=== PATIENT | female | born 1955 | race Caucasian/White ===

== ENCOUNTER → 2016-11-13 | Outpatient (CLI) | payer MEDICARE, MEDICAID ==
--- NOTE | 2016-11-13 14:10 | WOMENS IMAGING REPORT ---
EXAM DESCRIPTION: BONE DENSITY HIP/SPINE COMPLETED DATE/TIME: 11/13/2016 2:02 pm REASON FOR STUDY: M89.9 M89.9 DISORDER OF BONE, UNSPECIFIED COMPARISON: None. TECHNIQUE: Dual-Energy X-ray Absorptiometry (DEXA) of the AP Spine and Hip. LIMITATIONS: None. FINDINGS: LUMBAR SPINE: The bone mineral density (BMD) measured from L1-L4 in the AP projection correlates with a T-score of -1.0, which is osteopenia as defined by the World Health Organization. HIP: The bone mineral density (BMD) measured in the left hip correlates with a T-score of -0.7, which is n ormal as defined by the World Health Organization. IMPRESSION: 1. LUMBAR SPINE: Borderline osteopenia 2. HIP: Normal COMMENT: The World Health Organization defines low BMD as follows: T-score: Normal: Greater than -1.0 Osteopenia: Between -1.0 and -2.5 Osteoporosis: Less than -2.5 without fractures Established osteoporosis: Less than -2.5 with fractures In general, you may wish to consider: Diagnosis Treatment Follow-up DEXA Normal BMD Prevention 2-3 years Osteopenia Prevention/Therapy 1-2 years Osteoporosis Therapy Yearly TECHNICAL DOCUMENTATION: JOB ID: [id number]- All Rights Reserved
== END ==
LOC: WI 12:37
PROVIDERS: ATTEND Internal Medicine
DX: M85.88 Other specified disorders of bone density and structure, other site (principal)
CPT/HCPCS: 77080

== ENCOUNTER 2017-05-11 09:37 | Emergency (ER) | payer MEDICARE, MEDICAID ==
--- NOTE | 2017-05-11 10:45 | ER Document Report ---
ED Medical Screen (RME) - General TRAVEL OUTSIDE OF THE [place] IN LAST 30 DAYS: No - HPI Patient complains to provider of: Shortness of Breath Onset: Other - 10 days ago Onset/Duration: Worse Associated Symptoms: Other - see notes above - Related Data Smoking: Cigarettes - 1 ppd <KEI ARAMBULA - Last Filed: 05/11/17 10:59> <DUANE GARCIA - Last Filed: 05/11/17 21:03> - General Chief Complaint: Shortness Of Breath Stated Complaint: SHORTNESS OF BREATH Time Seen by Provider: 05/11/17 10:27 Notes: 61 year old female with history of smoking (1 ppd) and family history of MIs (3 out of 5 brothers with history of MIs) presents to the ED complaining of worsening shortness of breath that started 10 days ago. Patient reports that the shortness of breath is not exacerbated with walking. Patient complains of having a 'smokers cough' which has not changed recently. Patient denies congestion, chest pain, dizziness, nausea, or fever. Patient has a history of shortness of breath, but not this bad. Patient denies history of NV, CVA, or COPD. PCP: Dr. Sagastume (KEI ARAMBULA) - Related Data Allergies/Adverse Reactions: naproxen [From Naprosyn] Allergy (Verified 05/11/17 09:39) Home Medications: Current Home Medications Diphenhydramine HCl [Benadryl] 25 mg PO BID 05/11/17 [History] Propranolol HCl [Inderal 20 mg Tablet] 20 mg PO Q12 05/11/17 [History] Past Medical History - General Information source: Patient - Social History Cigarette use (# per day): Yes - 1 ppd Chew tobacco use (# tins/day): No Frequency of alcohol use: Occasional Drug Abuse: None - Past Medical History Cardiac Medical History: Reports: Hx Hypertension Renal/ Medical History: Denies: Hx Peritoneal Dialysis Musculoskeltal Medical History: Reports Hx Arthritis Past Surgical History: Reports: Hx Hysterectomy, Hx Orthopedic Surgery - back <KEI ARAMBULA - Last Filed: 05/11/17 10:59> Review of Systems - Review of Systems Constitutional: No symptoms reported. denies: Fever EENT: No symptoms reported Cardiovascular: No symptoms reported. denies: Chest pain, Dizziness Respiratory: See HPI, Cough, Short of breath Gastrointestinal: No symptoms reported. denies: Nausea Genitourinary: No symptoms reported Female Genitourinary: No symptoms reported Musculoskeletal: No symptoms reported Skin: No symptoms reported Hematologic/Lymphatic: No symptoms reported Neurological/Psychological: No symptoms reported -: Yes All other systems reviewed and negative <KEI ARAMBULA - Last Filed: 05/11/17 10:59> Physical Exam - General General appearance: Alert In distress: None - Respiratory Respiratory status: No respiratory distress Breath sounds: Normal - Cardiovascular Rhythm: Regular Heart sounds: Normal auscultation - Psychological Associated symptoms: Normal affect, Normal mood <KEI ARAMBULA - Last Filed: 05/11/17 10:59> - Vital signs Vitals: Temp Pulse Resp BP Pulse Ox 97.7 F 77 16 141/87 H 99 05/11/17 09:43 05/11/17 09:43 05/11/17 09:43 05/11/17 09:43 05/11/17 09:43 Course <KEI ARAMBULA - Last Filed: 05/11/17 10:59> - Laboratory Result Diagrams: 05/11/17 11:00 05/11/17 11:00 <DUANE GARCIA - Last Filed: 05/11/17 21:03> - Re-evaluation Re-evalutation: 05/11/17 21:03 I personally performed the services described in the documentation, reviewed and edited the documentation which was dictated to the scribe in my presence, and it accurately records my words and actions. (DUANE GARCIA) - Vital Signs Vital signs: Temp Pulse Resp BP Pulse Ox 97.7 F 77 18 124/81 98 05/11/17 09:43 05/11/17 09:43 05/11/17 13:01 05/11/17 13:01 05/11/17 13:00 - Laboratory Laboratory results interpreted by me: 05/11/17 11:00 Seg Neuts % (Manual) 39 L Abs Lymphs (Manual) 6.0 H Doctor's Discharge <KEI ARAMBULA - Last Filed: 05/11/17 10:59> <DUANE GARCIA - Last Filed: 05/11/17 21:03> - Discharge Clinical Impression: Shortness of breath Condition: Stable Disposition: AGAINST MEDICAL ADVICE Scribe Documentation - Scribe Written by Scribe:: Lenora Bobo, 05/11/2017 1116 acting as scribe for :: Long <KEI ARAMBULA - Last Filed: 05/11/17 10:59>
[2017-05-11 11:09] LABS: HEMATOCRIT 43.4 % (36.0-47.0); HEMOGLOBIN 15.2 g/dL (12.0-15.5); HGB HCT DIFFERENCE 2.2; MEAN CORPUSCULAR HEMOGLOBIN 32.7 pg (27.0-33.4); MEAN CORPUSCULAR HGB CONC 35.1 g/dL (32.0-36.0); MEAN CORPUSCULAR VOLUME 93 fl (80-97); RED BLOOD COUNT 4.67 10^6/uL (3.72-5.28); WHITE BLOOD COUNT 10.3 10^3/uL (4.0-10.5)
[2017-05-11 11:28] LABS: APPEARANCE,URINE SLIGHTLY-CLOUDY; BILIRUBIN,URINE NEGATIVE (NEGATIVE); GLUCOSE, URINE NEGATIVE (NEGATIVE); KETONES,URINE NEGATIVE (NEGATIVE); LEUKOCYTE ESTERASE,URINE NEGATIVE (NEGATIVE); NITRITE,URINE NEGATIVE (NEGATIVE); PROTEIN,URINE NEGATIVE (NEGATIVE); URINE SPECIFIC GRAVITY 1.012; UROBILINOGEN,URINE NEGATIVE mg/dL (<2.0)
--- NOTE | 2017-05-11 11:31 | RADIOLOGY REPORT (SQ) ---
EXAM DESCRIPTION: CHEST PA/LAT COMPLETED DATE/TIME: 05/11/2017 11:20 am REASON FOR STUDY: SOB, congestion COMPARISON: None. EXAM PARAMETERS: NUMBER OF VIEWS: two views TECHNIQUE: Digital Frontal and Lateral radiographic views of the chest acquired. RADIATION DOSE: NA LIMITATIONS: none FINDINGS: LUNGS AND PLEURA: No opacities, masses or pneumothorax. No pleural effusion. MEDIASTINUM AND HILAR STRUCTURES: No masses or contour abnormalities. HEART AND VASCULAR STRUCTURES: Heart normal size. No evidence for failure. BONES: No acute findings. HARDWARE: None in the chest. OTHER: No other significant finding. IMPRESSION: NO SIGNIFICANT RADIOGRAPHIC FINDING IN THE CHEST. TECHNICAL DOCUMENTATION: JOB ID: [id number] [employer]- All Rights Reserved
[2017-05-11 11:32] LABS: WBC,URINE RARE /HPF
[2017-05-11 11:42] LABS: ALANINE AMINOTRANSFERASE 33 U/L (9-52); ALBUMIN 4.8 g/dL (3.5-5.0); ALKALINE PHOSPHATASE 81 U/L (38-126); ANION GAP 12 (5-19); ASPARTATE AMINO TRANSFERASE 22 U/L (14-36); BILIRUBIN,DIRECT 0.4 mg/dL (0.0-0.4); BILIRUBIN,TOTAL 0.6 mg/dL (0.2-1.3); BLOOD UREA NITROGEN 13 mg/dL (7-20); CALCIUM 9.6 mg/dL (8.4-10.2); CARBON DIOXIDE 29 mmol/L (22-30); CHLORIDE 102 mmol/L (98-107); CREATININE RESULT 0.73 mg/dL (0.52-1.25); GLUCOSE 97 mg/dL (75-110); MAGNESIUM 2.1 mg/dL (1.6-2.3); POTASSIUM 4.4 mmol/L (3.6-5.0); TOTAL PROTEIN 7.5 g/dL (6.3-8.2)
[2017-05-11 11:46] LABS: BASOPHILS % (MANUAL) 0 % (0-2); EOSINOPHILS % (MANUAL) 0 % (0-6); LYMPHOCYTES % (MANUAL) 45 % (13-45); TOTAL CELLS COUNTED 100
[2017-05-11 11:47] LABS: RBC MORPHOLOGY COMMENT NORMO-CYTIC/CHROMIC
--- NOTE | 2017-05-11 13:14 | EKG REPORT ---
SEVERITY:- ABNORMAL ECG - SINUS RHYTHM EARLY TRANSITION, CLINICAL CORRELATION NEEDED : Confirmed by: Solomon Tavares MD 11-May-2017 13:13:13
[2017-05-11] MEDS ORDERED: IPRATROPIUM/ALBUTEROL 0.5-2.5 MG/3 ML AMPUL NEB ONE (13:15)
--- NOTE | 2017-05-11 13:15 | ER Document Report ---
ED Respiratory Problem - General Mode of Arrival: Ambulatory Information source: Patient TRAVEL OUTSIDE OF THE [place] IN LAST 30 DAYS: No <MERCEDEZ MCGARRY - Last Filed: 05/11/17 13:15> <VEE PEREZ - Last Filed: 05/11/17 14:26> - General Chief Complaint: Shortness Of Breath Stated Complaint: SHORTNESS OF BREATH Time Seen by Provider: 05/11/17 10:27 Notes: Patient is a 61-year-old female who presents to the emergency department today with complaints of shortness of breath. Patient has an extensive smoking history and continues to smoke 1 pack per day. Patient states she has had this shortness of breath for approximately 10 days with her usual "smoker's cough". Patient states she does not believe that the shortness of breath is keeping her awake at night. Patient states she is short of breath at rest. (MERCEDEZ MCGARRY) - Related Data Allergies/Adverse Reactions: naproxen [From Naprosyn] Allergy (Verified 05/11/17 09:39) Home Medications: Current Home Medications Diphenhydramine HCl [Benadryl] 25 mg PO BID 05/11/17 [History] Propranolol HCl [Inderal 20 mg Tablet] 20 mg PO Q12 05/11/17 [History] Past Medical History - General Information source: Patient - Social History Smoking Status: Current Every Day Smoker Cigarette use (# per day): Yes - 1 ppd Chew tobacco use (# tins/day): No Frequency of alcohol use: Occasional Drug Abuse: None Lives with: Family Family History: Reviewed & Not Pertinent, Other Patient has suicidal ideation: No Patient has homicidal ideation: No - Past Medical History Cardiac Medical History: Reports: Hx Hypertension Musculoskeltal Medical History: Reports Hx Arthritis Past Surgical History: Reports: Hx Hysterectomy, Hx Orthopedic Surgery - back <MERCEDEZ MCGARRY - Last Filed: 05/11/17 13:15> Review of Systems - Review of Systems Constitutional: No symptoms reported EENT: No symptoms reported Cardiovascular: No symptoms reported Respiratory: See HPI, Cough - "smokers cough", Short of breath Gastrointestinal: No symptoms reported Genitourinary: No symptoms reported Female Genitourinary: No symptoms reported Musculoskeletal: No symptoms reported Skin: No symptoms reported Hematologic/Lymphatic: No symptoms reported Neurological/Psychological: No symptoms reported -: Yes All other systems reviewed and negative <MERCEDEZ MCGARRY - Last Filed: 05/11/17 13:15> Physical Exam <MERCEDEZ MCGARRY - Last Filed: 05/11/17 13:15> <VEE PEREZ - Last Filed: 05/11/17 14:26> - Vital signs Vitals: Temp Pulse Resp BP Pulse Ox 97.7 F 77 16 141/87 H 99 05/11/17 09:43 05/11/17 09:43 05/11/17 09:43 05/11/17 09:43 05/11/17 09:43 - Notes Notes: Physical Exam: General: Alert, appears well. HEENT: Normocephalic. Atraumatic. PERRL. Extraocular movements intact. Oropharynx clear. Neck: Supple. Non-tender. Respiratory: No respiratory distress. Wheezing and rhonchi throughout bilaterally consistent with extensive smoking history. Cardiovascular: Regular rate and rhythm. Abdominal: Normal Inspection. Non-tender. No distension. Normal Bowel Sounds. Back: Non-tender. No deformity or step off. Extremities: Moves all four extremities. Upper extremities: Normal inspection. Normal ROM. Lower extremities: Normal inspection. No edema. Normal ROM. Neurological: Normal cognition. AAOx4. Normal speech. Psychological: Normal affect. Normal Mood. Skin: Warm. Dry. Normal color. (MERCEDEZ MCGARRY) Course - Laboratory Result Diagrams: 05/11/17 11:00 05/11/17 11:00 <MERCEDEZ MCGARRY - Last Filed: 05/11/17 13:15> - Laboratory Result Diagrams: 05/11/17 11:00 05/11/17 11:00 <VEE PEREZ - Last Filed: 05/11/17 14:26> - Re-evaluation Re-evalutation: 05/11/17 14:24 After seeing the patient, I told her we would do a workup to evaluate her 10 day history of increasing shortness of breath and do a breathing treatment and see if it would make her breathing feel a little bit better. 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 She did not get the nebulizer treatment and I did not get a chance to speak with her before she left. The d-dimer was quite low so pulmonary embolus as a cause of her shortness of breath is quite unlikely. The patient's EKG was completely normal and her troponin is undetectable. She does have a strong family history for coronary artery disease but no evidence of that playing a part in her shortness of breath I suspect her shortness of breath is completely related to her long smoking history and developing COPD. (VEE PEREZ) - Vital Signs Vital signs: Temp Pulse Resp BP Pulse Ox 97.7 F 77 18 124/81 98 05/11/17 09:43 05/11/17 09:43 05/11/17 13:01 05/11/17 13:01 05/11/17 13:00 - Laboratory Laboratory results interpreted by me: 05/11/17 11:00 Seg Neuts % (Manual) 39 L Abs Lymphs (Manual) 6.0 H Discharge <MERCEDEZ MCGARRY - Last Filed: 05/11/17 13:15> <VEE PEREZ - Last Filed: 05/11/17 14:26> - Discharge Clinical Impression: Shortness of breath Condition: Stable Disposition: AGAINST MEDICAL ADVICE Scribe Attestation: 05/11/17 14:26 I personally performed the services described in the documentation, reviewed and edited the documentation which was dictated to the scribe in my presence, and it accurately records my words and actions. (VEE PEREZ) Scribe Documentation - Scribe Written by Scribe:: Lenora Rangel, 05/11/2017 1323 acting as scribe for :: Tracy <MERCEDEZ MCGARRY - Last Filed: 05/11/17 13:15>
[2017-05-11 13:39] VITALS: BP 124/81
== END 2017-05-11 13:56 | disposition left against medical advice (07) ==
LOC: ER 09:37
DX: R06.02 Shortness of breath (principal); F17.210 Nicotine dependence, cigarettes, uncomplicated; R06.2 Wheezing; R05 Cough; I10 Essential (primary) hypertension; Z88.8 Allergy status to other drugs, medicaments and biological substances; Z82.49 Family history of ischemic heart disease and other diseases of the circulatory system
CPT/HCPCS: 36415; 71020; 80053; 81001; 83735; 84484; 85025; 85379; 93005; 93010; 99285